=== PATIENT | female | born 1950 | race Caucasian/White ===

== ENCOUNTER → 2024-08-01 | Outpatient (CLI) | payer MEDICARE ==
--- NOTE | 2024-08-01 12:11 | HMCIMG ---
EXAM: LUMBAR SPINE 2-3VWS REASON: FUSION OF SPINE, LUMBAR REGION. COMPARISON: None. TECHNIQUE: 3 views of the lumbar spine were obtained. FINDINGS: There are bilateral pedicle screws at L3, L4 and L5. Interspace heights are preserved. Alignment is normal. Hardware appears intact. There is been laminectomy posteriorly at these levels. There is fusion material noted laterally. Remaining vertebral bodies appear normal. Alignment is otherwise unremarkable Soft tissues appear unremarkable. IMPRESSION: 1. Postop lumbar spine surgery without evidence of complication.
== END | disposition home or self-care (01) ==
LOC: RAH 10:50
PROVIDERS: ATTEND Neurological Surgery
DX: Z01.818 Encounter for other preprocedural examination (principal); M43.26 Fusion of spine, lumbar region; M47.816 Spondylosis without myelopathy or radiculopathy, lumbar region; M99.33 Osseous stenosis of neural canal of lumbar region; M43.16 Spondylolisthesis, lumbar region; M48.062 Spinal stenosis, lumbar region with neurogenic claudication; Z98.1 Arthrodesis status
CPT/HCPCS: 72100